=== PATIENT | female | born 1940 | race Caucasian/White ===

== ENCOUNTER 2018-08-04 07:03 | Inpatient (IN) ==
[2018-07-30 12:09] LABS: Appearance,Urine CLOUDY; Bilirubin,Urine NEG (NEG); Color,Urine YELLOW; Glucose,Urine (UA) NEGATIVE (NEG); Leukocyte Esterase,Urine NEG /uL (NEG); Protein,Urine NEG (NEG); Specific Gravity,Urine 1.009 (1.000-1.035); Urine Blood NEG mg/dL (<0.03); Urobilinogen,Urine NEG (NEG)
[2018-07-30 12:48] LABS: Basophils # (Auto) 0 K/mcL (0.0-0.3); Basophils % (Auto) 0.3 % (0.0-2.0); Eosinophils # (Auto) 0.1 K/mcL (0.0-0.7); Eosinophils % (Auto) 1.8 % (0.0-7.0); Granulocytes % (Auto) 70.3 % (38.0-78.0); Lymphocytes % (Auto) 17.7 % (15.5-49.0); Mean Cell Volume 93.6 fL (80.0-100.0); Mean Corpuscular HGB Conc 33.5 g/dL (31.0-36.0); Mean Corpuscular Hemoglobin 31.4 pg (26.0-34.0); Monocytes # (Auto) 0.5 K/mcL (0.1-0.9); Monocytes % (Auto) 9.9 % (1.0-12.0); Platelet Count 219 K/mcL (140-440); RBC 4.36 M/mcL (4.00-5.20); Red Cell Distribution Width 13.1 % (11.5-14.5)
[2018-07-30 13:04] LABS: Blood Urea Nitrogen 16 mg/dl (8-23)
[2018-07-30 13:51] LABS: Estimated Average Glucose(eAG) 108 mg/dL; Hemoglobin A1C 5.4 % HGB (4.0-6.0)
[~2018-08-04 07:03] MED LIST: 0.9 % SODIUM CHLORIDE 9 ML, KETOROLAC 30 MG, ROPIVACAINE HCL/PF 49.5 ML, EPINEPHrine 0.... IJ SCH; ACETAMINOPHEN 500 MG TABLET PO SCH; CELECOXIB 200 MG CAPSULE PO SCH; PREGABALIN 75 MG CAPSULE PO SCH; ceFAZolin 1 GM VIAL IV SCH; oxyCODONE 10 MG TAB.ER.12H PO SCH
[2018-08-04] MEDS ORDERED: fentaNYL 100 MCG/2 ML VIAL IV ONE (10:00)
[2018-08-04] MEDS ORDERED: SUCCINYLCHOLINE 20 MG/ML ML IV ONE (10:00)
[2018-08-04] MEDS ORDERED: GLYCOPYRROLATE 0.2 MG/ML VIAL IV ONE (10:00)
[2018-08-04] MEDS ORDERED: ONDANSETRON 4 MG/2 ML VIAL IV ONE (10:00)
[2018-08-04] MEDS ORDERED: LIDOCAINE HCL/PF 100 MG/5 ML SYRINGE IV ONE (10:00)
[2018-08-04] MEDS ORDERED: PROPOFOL 200 MG/20 ML VIAL IV ONE (10:00)
[2018-08-04] MEDS ORDERED: ePHEDrine 50 MG/ML AMPUL IV ONE (10:00)
[2018-08-04] MEDS ORDERED: DEXAMETHASONE 10 MG/ML VIAL IV ONE (10:00)
[2018-08-04] MEDS ORDERED: MIDAZOLAM 5 MG/5 ML VIAL IV ONE (10:00)
[2018-08-04] MEDS ORDERED: TRANEXAMIC ACID 1,000 MG/10 ML VIAL IV ONE ×3 (10:00→12:36)
[2018-08-04] MEDS ORDERED: METOPROLOL TARTRATE 5 MG/5 ML VIAL IV PRN (10:49)
[2018-08-04] MEDS ORDERED: IPRATROPIUM/ALBUTEROL 3 ML AMPUL.NEB NEB PRN (10:49)
[2018-08-04] MEDS ORDERED: ePHEDrine 50 MG/ML AMPUL IV PRN (10:49)
[2018-08-04] MEDS ORDERED: fentaNYL 100 MCG/2 ML VIAL IV PRN (10:49)
[2018-08-04] MEDS ORDERED: PROMETHAZINE 25 MG/ML VIAL IM PRN (10:49)
[2018-08-04] MEDS ORDERED: diphenhydrAMINE 50 MG/ML VIAL IV PRN (10:49)
[2018-08-04] MEDS ORDERED: METHOCARBAMOL 1,000 MG/10 ML VIAL IV PRN (10:49)
[2018-08-04] MEDS ORDERED: MEPERIDINE 50 MG/ML INJECTION IM PRN (10:49)
[2018-08-04] MEDS ORDERED: GENTAMICIN SULFATE 800 MG/20 ML VIAL IR ONE (10:49)
[2018-08-04] MEDS ORDERED: ONDANSETRON 4 MG/2 ML VIAL IV PRN ×2 (10:49→11:31)
[2018-08-04] MEDS ORDERED: PROMETHAZINE 25 MG/ML VIAL IV PRN (10:49)
[2018-08-04] MEDS ORDERED: MEPERIDINE 25 MG/ML SYRINGE IV PRN (10:49)
[2018-08-04] MEDS ORDERED: ATROPINE SULFATE 0.4 MG/ML VIAL IV PRN (10:49)
[2018-08-04] MEDS ORDERED: NALOXONE HCL 0.4 MG/ML VIAL IV PRN (10:49)
[2018-08-04] MEDS ORDERED: FLUMAZENIL 0.1 MG/ML ML IV PRN (10:49)
[2018-08-04] MEDS ORDERED: ACETAMINOPHEN 325 MG TABLET PO PRN (11:31)
[2018-08-04] MEDS ORDERED: POLYETHYLENE GLYCOL 3350 17 GM PACKET PO PRN (11:31)
[2018-08-04] MEDS ORDERED: BENZOCAINE/MENTHOL 1 LOZENGE PO PRN (11:31)
[2018-08-04] MEDS ORDERED: MAGNESIUM HYDROXIDE 30 ML ORAL.SUSP PO PRN (11:31)
[2018-08-04] MEDS ORDERED: FLEETS ADULT ENEMA PR PRN (11:31)
[2018-08-04] MEDS ORDERED: BISACODYL 10 MG SUPP.RECT PR PRN (11:31)
[2018-08-04] MEDS ORDERED: HYDROmorphone 2 MG/ML VIAL IV PRN (11:31)
[2018-08-04] MEDS ORDERED: TEMAZEPAM 15 MG CAPSULE PO PRN (11:31)
[2018-08-04] MEDS ORDERED: KETOROLAC 15 MG/ML VIAL IV PRN (11:31)
--- NOTE | 2018-08-04 11:31 | Brief Operative Note ---
Date of procedure: 08/04/18 Pre-op diagnosis: right hip djd severe Post-op diagnosis: same Procedure: right total hip cemented stem 52 mm cup and 36 mm head and neutral neck Grafts/Implants: Yes Anesthesia: GETA Complications: none Surgeon: Ray Mcmahan Transport Analyst: Toni Lei Estimated blood loss (cc): 100 Specimens Removed/Pathology: none sent Condition: stable Disposition: PACU
--- NOTE | 2018-08-04 12:41 | Operative Note ---
DATE OF OPERATION: 08/04/2018 PREOPERATIVE DIAGNOSIS: Right hip degenerative arthritis. POSTOPERATIVE DIAGNOSIS: Right hip degenerative arthritis. PROCEDURE: Right total hip arthroplasty. SURGEON: Ray Mcmahan M.D. SHIP CLEANER: Toni Lei PA-C. ANESTHESIA: General LMA anesthesia. COMPLICATIONS: None. ESTIMATED BLOOD LOSS: About 100 to 150 mL. IMPLANTS PLACED: A 52 cup with a 30 mm screw with a hooded liner, as well as a size 5 stem, neutral neck length, 36 mm head cemented. DESCRIPTION OF PROCEDURE: The patient was brought to the operating room and put to sleep with general LMA anesthesia. Once asleep, the patient had the right hip sterilely prepped and draped in the usual sterile fashion. We confirmed the operative site. Preop antibiotics and tranexamic acid had been given and then we proceeded with the case. We dissected through the superior approach to the hip through the muscle layer. Charnley retractor placed. We released the superior capsule. Piriformis obturator internus was released. We dislocated the hip superiorly. We made our neck cut at 30 mm, center of hip rotation and then subluxed the hip anteriorly. With this, I then prepared the cup. We removed the labrum, reamed up to the size 52, and implanted a 52 cup with a 30 mm screw to hold the cup in place. This was positioned in 20 degrees of anteversion, 40 degrees of inclination. This was very stable. At this point, we then placed a hooded liner, moyer placed inferiorly. We then prepared the femur, broached up to the size of 5. An x-ray was taken intraoperative to compare [id number] length. This side was slightly longer. We then cemented a size 5 stem, and it was taken down to the calcar to match the x-ray during surgery. This was kept at 15 degrees of anteversion. Once dry, we then trialed the neutral neck length which was very stable up to 90 degrees. Anteriorly there was no subluxation or impingement. At this point, we chose the neutral neck length and then implanted a 36 mm ceramic head, neutral neck length. This was reduced. It was stable once more throughout and compared leg lengths on the table. All seemed to match. We irrigated thoroughly. We then closed the fascial layer and the capsule posterior with #1 Ethibond. The fascial layer to the muscle was closed with #2 Stratafix, and the skin closed with #1 Stratafix as well as adhesive closure. The patient tolerated this well without complication. Sterile bandage was applied. BRITTANY:jael Job ID: [id number] Doc ID: [id number] Ray Mcmahan MD
[2018-08-04] MEDS: 0.45 % SODIUM CHLORIDE 1,000 ML IV SCH ×2 (12:45→22:35)
[2018-08-04] MEDS: 0.9 % SODIUM CHLORIDE 10 ML SYRINGE IV SCH ×2 (13:36→22:41)
--- NOTE | 2018-08-04 13:40 | XRay Report ---
HISTORY: Postop hip replacement FINDINGS: Patient has bilateral well positioned total hip prosthesis. There is no fracture. Lateral to the right greater trochanter there is radiopaque material which could be cement or dense soft tissue calcifications. There are no abnormal calcifications around the left hip joint. IMPRESSION: Well-positioned right hip prosthesis Interpreted and Authenticated by: Kurt Jacob 08/04/18
[2018-08-04] MEDS ORDERED: traMADol 50 MG TABLET PO PRN (14:04)
[2018-08-04] MEDS ORDERED: traMADol 50 MG TABLET PO ONE (14:28)
[2018-08-04] MEDS: ceFAZolin 1 GM VIAL IV SCH (17:07)
[2018-08-04] MEDS ORDERED: ASPIRIN 325 MG ENTERIC COATED TABLET PO SCH (21:00)
[2018-08-04] MEDS ORDERED: SIMVASTATIN 10 MG TABLET PO SCH (21:00)
[2018-08-04] MEDS ORDERED: SENNOSIDES 1 TABLET PO SCH (21:00)
[2018-08-04] MEDS ORDERED: CELECOXIB 200 MG CAPSULE PO SCH (21:00)
[2018-08-04] MEDS: DOCUSATE SODIUM 100 MG CAPSULE PO SCH (21:04)
[2018-08-04] MEDS: APIXABAN 5 MG TABLET PO SCH (21:04)
[2018-08-04] MEDS: FLECAINIDE 50 MG TABLET PO SCH (21:08)
[2018-08-05] MEDS: ceFAZolin 1 GM VIAL IV SCH (01:44)
[2018-08-05] MEDS: 0.9 % SODIUM CHLORIDE 10 ML SYRINGE IV SCH (05:28)
--- NOTE | 2018-08-05 07:34 | Orthopedic Progress Note ---
Subjective Patient information: Note initiated : 08/05/18 at 7:33 am Service Date, if different from initiated Date: [] Patient: Sonia Kumar 77 y/o F admitted on 08/04/18 for Right Total Hip Arthroplasty. Chief Complaint: [Pt is stable this morning on post operative day 1 without any significant concerns or complaints. Patients vital signs have remained stable. Patients dressing is dry and is grossly intact from a neurovascular and motor standpoint. Patients 10 point ROS is otherwise negative. ] Objective Vital signs: Vital Signs Temp Pulse Resp BP Pulse Ox 08/05/18 07:27 97.9 F 53 L 16 102/51 94 08/05/18 05:31 96 08/05/18 03:15 97.8 F 59 L 16 117/61 94 08/05/18 03:14 94 08/05/18 01:46 95 08/04/18 23:29 97.8 F 64 16 112/62 95 08/04/18 23:28 95 08/04/18 21:14 97 08/04/18 20:00 97.6 F 61 16 141/70 97 08/04/18 19:12 97 08/04/18 17:28 98 08/04/18 16:00 100 08/04/18 15:20 97.1 F 16 120/56 100 08/04/18 14:00 100 08/04/18 13:34 96 08/04/18 12:33 97.6 F 66 14 131/55 98 08/04/18 12:18 67 16 137/52 98 08/04/18 12:03 67 17 126/55 100 08/04/18 12:00 68 17 121/51 100 08/04/18 11:55 69 14 112/48 100 08/04/18 11:50 64 19 104/46 98 08/04/18 11:47 97.8 F 76 16 83/48 98 08/04/18 07:40 97.8 F 16 131/59 98 Intake and Output 08/04/18 08/05/18 08/05/18 21:59 05:59 13:59 Intake Total 240 / 240 2333 / 2333 Output Total 100 / 100 350 / 350 Balance 140 / 140 2333 / 2333 -350 / -350 Intake: IV 1982 Sodium Chloride 0.45% 1,000 ml 1982 @ 100 mls/hr IV .Q10H GILDARDO Rx#: [id number] Oral 240 / 240 350 / 350 Output: Void Amount 100 / 100 350 / 350 Other: Urine Appearance Clear Clear Urine Color Dark Yellow Bright Yellow # Voids 1 Weight 164 lb Intake & Output: Intake & Output 08/04/18 08/05/18 08/05/18 21:59 05:59 13:59 Intake Total 240 / 240 2333 / 2333 Output Total 100 / 100 350 / 350 Balance 140 / 140 2333 / 2333 -350 / -350 Weight 164 lb Intake: IV 1982 Sodium Chloride 0.45% 1,000 ml 1982 @ 100 mls/hr IV .Q10H GILDARDO Rx#: [id number] Oral 240 / 240 350 / 350 Output: Void Amount 100 / 100 350 / 350 Other: Urine Appearance Clear Clear Urine Color Dark Yellow Bright Yellow # Voids 1 Incision: Yes healing Incision clean and dry: Yes Dressing: Yes clean Weight bearing status: full Neurological exam IM: Yes motor sensory intact, Yes neurovascular intact Extremities exam IM: Yes Foot pink and warm, Yes neurovascular intact - Labs CBC & BMP: 08/05/18 04:49 07/30/18 10:49 Labs: Orthopedic Labs 07/30/18 10:50 PT 14.1 INR 1.1 APTT 28 08/05/18 07/30/18 04:49 10:50 Hgb 13.7 Hct 32.1 L 40.8 Assessment and Plan (1) Hx of total hip arthroplasty The patient has been educated regarding dressing care, Physical Therapy recommendations, home exercises, restrictions, and follow up appointments. The patient has had all necessary DME prescribed. The patient has remained relatively stable during their hospital course. Leave Dermabond patch intact until followup Status: Acute
--- NOTE | 2018-08-05 07:37 | Discharge Summary ---
Ortho Discharge - [facility] - Patient Instructions Diet: Regular Diet Activity: activity as tolerated, weight bearing as tolerated Total Hip Protocol: Follow activity instructions as provided by Physical Therapy. Dressing Care: May shower in 2 days - Problem Maintenance (1) Hx of total hip arthroplasty Status: Acute - Follow Up Plan Follow Up Appointments: Toni Lei PA-C [Physician Ha[employer]age Engine Operator] - 08/19/18 10:40 am Disposition: Home, Self-Care Prognosis: Good Rehab Potential: Good I certify that the patient requires SNF services: No Overall status at discharge: patient is progressing back to baseline - Orders For Discharge Prescriptions: Docusate Sodium [Colace] 100 mg PO BID #60 cap traMADol [Ultram] 50 - 100 mg PO Q4HP PRN #75 tab PRN Reason: Pain
[2018-08-05] MEDS ORDERED: metFORMIN 500 MG TABLET PO SCH (08:00)
[2018-08-05] MEDS: DOCUSATE SODIUM 100 MG CAPSULE PO SCH (08:54)
[2018-08-05] MEDS: APIXABAN 5 MG TABLET PO SCH (08:54)
[2018-08-05] MEDS: FLECAINIDE 50 MG TABLET PO SCH (08:58)
[2018-08-05] MEDS ORDERED: HYDROCHLOROTHIAZIDE 25 MG TABLET PO SCH (09:00)
[2018-08-05] MEDS ORDERED: VITAMIN B COMPLEX 1 CAPSULE PO SCH (09:00)
[2018-08-05] MEDS ORDERED: ATENOLOL 50 MG TABLET PO SCH (09:00)
[2018-08-05] MEDS ORDERED: CALCIUM W/VIT D3 500 MG TABLET PO SCH (09:00)
[2018-08-05] MEDS ORDERED: MULTIVIT,THER IRON,CA,FA & MIN 1 TABLET PO SCH (09:00)
[2018-08-05] MEDS ORDERED: TAMOXIFEN 10 MG TABLET PO SCH (09:00)
[2018-08-05] MEDS ORDERED: VITAMIN D3 1,000 UNIT TABLET PO SCH (09:00)
[2018-08-05] MEDS ORDERED: VITAMIN E (DL,TOCOPHERYL ACET) 400 UNIT CAPSULE PO SCH (09:00)
[2018-08-05] MEDS ORDERED: LISINOPRIL 20 MG TABLET PO SCH (09:00)
== END 2018-08-05 13:30 | disposition home or self-care (01) | DRG 470 ==
LOC: MEDSUR 07:03
PROVIDERS: ADMIT Orthopaedic Surgery; ATTEND Orthopaedic Surgery
CPT/HCPCS: 62322; 73501; 73502; 97161; A9270; C1713; C1776; J0330; J0690; J1100; J1580; J2001; J2250; J2405; J3010; J7120